=== PATIENT | female | born 1960 | race Native Hawaiian/Other Pacific Islander ===

== ENCOUNTER 2018-05-17 21:59 | Inpatient (IN) | payer SELFPAY ==
[2018-05-17] MEDS ORDERED: NACL 0.9% 500 ML 500 ML IV ONE (23:03)
[2018-05-17] MEDS ORDERED: TYLENOL PO STA (23:03)
[2018-05-17 23:38] LABS: Basophils % (Auto) 0.2 % (0.0-1.8); Eosinophils % (Auto) 0.3 % (0.0-4.3); Hematocrit 36.6 % (30.3-42.9); Hemoglobin 12.2 gm/dl (10.1-14.3); Lymphocytes # (Auto) 0.5 K/mm3 (1.2-5.4); Lymphocytes % (Auto) 4.9 % (13.4-35.0); Mean Corpuscular HGB Conc 33 % (30-34); Mean Corpuscular Hemoglobin 27 pg (28-32); Mean Corpuscular Volume 81 fl (79-97); Monocytes # (Auto) 0.6 K/mm3 (0.0-0.8); Platelet Count 243 K/mm3 (140-440); Red Blood Count 4.52 M/mm3 (3.65-5.03); Red Cell Distribution Width 15.1 % (13.2-15.2)
--- NOTE | 2018-05-17 23:44 | XRay Report ---
FINAL REPORT EXAM: XR CHEST 1V AP HISTORY: possible Sepsis TECHNIQUE: PA view of the chest Comparison: None FINDINGS: There is no evidence of infiltrate, pneumothorax or pleural fluid collection. The cardiomediastinal silhouette is normal in appearance. The bony structures are unremarkable. Visualization detail of the thoracic spine is limited. IMPRESSION: 1. No evidence of an acute pulmonary process.
[2018-05-17] MEDS ORDERED: NACL 0.9% 1000 ML 1,000 ML IV ONE (23:48)
[2018-05-17 23:51] LABS: INR 1.07 (0.87-1.13)
--- NOTE | 2018-05-17 23:52 | Emergency Department Report ---
ED General Adult HPI - General Chief complaint: Fever Stated complaint: WEAK,VOMITING Time Seen by Provider: 05/17/18 23:28 Source: patient Mode of arrival: Ambulatory Limitations: No Limitations - History of Present Illness Initial comments: Patient is 57 years old female with no significant past medical history. Patient presented to the ER complaining of fever, cough for one week. Patient denied any nausea or vomiting. Patient is also complaining of urinary symptoms with increased frequency and burning sensation. Patient denied any chest pain or shortness of breath. Severity scale (0 -10): 10 - Related Data Previous Rx's Medication Instructions Recorded Last Taken Type HYDROcodone/APAP 7.5-325 [[place] 1 each PO Q6HR PRN #20 tablet 12/03/15 Unknown Rx 7.5/325] Ketorolac [Toradol] 10 mg PO Q6H PRN #20 tablet 12/05/15 Unknown Rx Ondansetron [Zofran Odt] 4 mg PO QID PRN #20 tab.rapdis 12/05/15 Unknown Rx Allergies Allergy/AdvReac Type Severity Reaction Status Date / Time No Known Allergies Allergy Verified 12/03/15 20:43 ED Review of Systems ROS: Stated complaint: WEAK,VOMITING Other details as noted in HPI Comment: All other systems reviewed and negative Constitutional: chills, fever Respiratory: cough, shortness of breath, SOB with exertion. denies: wheezing Cardiovascular: palpitations. denies: chest pain Gastrointestinal: denies: abdominal pain, nausea, vomiting, diarrhea, constipation, hematemesis, melena, hematochezia Neurological: denies: headache, weakness, numbness, paresthesias, confusion, abnormal gait ED Past Medical Hx - Past Medical History Previous Medical History?: No - Surgical History Past Surgical History?: No - Social History Smoking Status: Never Smoker Substance Use Type: None - Medications Home Medications: Home Medications Medication Instructions Recorded Confirmed Last Taken Type HYDROcodone/APAP 7.5-325 [[place] 1 each PO Q6HR PRN #20 tablet 12/03/15 Unknown Rx 7.5/325] Ketorolac [Toradol] 10 mg PO Q6H PRN #20 tablet 12/05/15 Unknown Rx Ondansetron [Zofran Odt] 4 mg PO QID PRN #20 tab.rapdis 12/05/15 Unknown Rx ED Physical Exam - General Limitations: No Limitations General appearance: alert, in no apparent distress - Head Head exam: Present: atraumatic, normocephalic, normal inspection - Eye Eye exam: Present: normal appearance, PERRL - ENT ENT exam: Present: normal exam, normal orophraynx - Neck Neck exam: Present: normal inspection, full ROM. Absent: tenderness, meningismus, lymphadenopathy, thyromegaly - Respiratory Respiratory exam: Present: normal lung sounds bilaterally. Absent: respiratory distress, wheezes, rales, rhonchi, chest wall tenderness, accessory muscle use, decreased breath sounds, prolonged expiratory - Cardiovascular Cardiovascular Exam: Present: tachycardia - GI/Abdominal GI/Abdominal exam: Present: soft, normal bowel sounds. Absent: distended, tenderness, guarding, rebound, rigid, organomegaly, mass, bruit, pulsatile mass - Extremities Exam Extremities exam: Present: normal inspection, full ROM, normal capillary refill. Absent: tenderness, pedal edema, joint swelling, calf tenderness - Back Exam Back exam: Present: normal inspection, full ROM. Absent: tenderness, CVA tenderness (R), CVA tenderness (L), muscle spasm, paraspinal tenderness, vertebral tenderness, rash noted - Neurological Exam Neurological exam: Present: alert, oriented X3, CN II-XII intact, normal gait, reflexes normal - Skin Skin exam: Present: warm, intact, normal color ED Course Vital Signs 05/17/18 05/18/18 05/18/18 23:04 00:14 00:15 Temperature 101.9 F H Pulse Rate 113 H 94 H 95 H Respiratory 18 7 L 26 H Rate Blood Pressure 96/58 75/42 O2 Sat by Pulse 98 95 Oximetry 05/18/18 05/18/18 05/18/18 00:45 01:00 01:15 Temperature 98.5 F Pulse Rate 87 87 Respiratory 22 21 Rate Blood Pressure 82/42 85/46 O2 Sat by Pulse 95 93 Oximetry 05/18/18 05/18/18 01:28 01:31 Temperature Pulse Rate 84 Respiratory 18 Rate Blood Pressure O2 Sat by Pulse 98 Oximetry - Central Line Placement Right Femoral Consent Obtained: written consent Time Out Performed: Yes Patient Placed on Monitor/Pulse Ox: Yes Prep: mask, gown, gloves Central Line Prep: Povidone-Iodine 1% Local Anesthesia Used: Lidocaine 2% Central Line Lumen Inserted: triple Bloods Obtained for Lab: Yes Central Line Position: good blood return, all ports aspirated, flus, sutured in place with 3-0 Dressing Applied: Tegaderm, sterile gauze/tape Patient Tolerated Procedure: well, no complications Complications: none ED Medical Decision Making - Lab Data Result diagrams: 05/17/18 23:16 05/17/18 23:16 - EKG Data -: EKG Interpreted by Me EKG shows normal: sinus rhythm - EKG Data Interpretation: no acute changes - Radiology Data Radiology results: report reviewed - Medical Decision Making Patient is 57 years old female with no significant past medical history. Patient presented to the ER complaining of fever, cough for one week. Patient denied any nausea or vomiting. Patient is also complaining of urinary symptoms with increased frequency and burning sensation. Patient denied any chest pain or shortness of breath. Patient found to have a septic shock with a UTI. Patient did not respond to fluid resuscitation. I placed a right femoral central line for vasopressor. I discussed the patient is Dr. Sullivan he had return admitted the patient to medical service. Critical Care Time: Yes Critical care time in (mins) excluding proc time.: 30 Critical care attestation.: If time is entered above; I have spent that time in minutes in the direct care of this critically ill patient, excluding procedure time. ED Disposition Clinical Impression: Septic shock, UTI (urinary tract infection) Disposition: OP ADMIT IP TO THIS HOSP Is pt being admited?: Yes Condition: Stable Referrals: PRIMARY CARE, [Primary Care Provider] - 3-5 Days
[2018-05-17 23:55] LABS: Alanine Aminotransferase 22 units/L (7-56); BUN/Creatinine Ratio 22; Blood Urea Nitrogen 20 mg/dL (7-17); Hemolysis Index 1
[2018-05-18] MEDS: ZOSYN/NS 3.375GM/50ML 3.375 GM/50 ML BAG IV SCH ×4 (00:35→19:00)
[2018-05-18 00:51] LABS: Bacteria,Urine 4+ /HPF (Negative); Bilirubin,Urine NEG (Negative); Blood,Urine MOD (Negative); Color,Urine Amber (Yellow); Mucus,Urine 1+ /HPF
[2018-05-18 00:52] LABS: WBC,Urine > 182.0 /HPF (0.0-6.0)
[2018-05-18] MEDS ORDERED: NACL 0.9% 1000 ML 1,000 ML IV ONE ×2 (01:10→01:55)
[2018-05-18] MEDS ORDERED: SODIUM CHLORIDE FLUSH SYRINGE 10 ML IV PRN (03:16)
[2018-05-18] MEDS ORDERED: TYLENOL PR PRN (03:16)
[2018-05-18] MEDS ORDERED: REGLAN IV PRN (03:16)
[2018-05-18] MEDS: KCL 10MEQ/100ML 10 MEQ/100 ML BAG IV SCH ×2 (04:00→05:44)
[2018-05-18] MEDS ORDERED: LEVOPHED DRIP 4 MG/NS 250 ML 4 MG/250 ML BAG IV SCH (04:00)
[2018-05-18] MEDS ORDERED: ZOFRAN IV PRN (04:04)
--- NOTE | 2018-05-18 04:31 | History and Physical Report ---
History of Present Illness Date of examination: 05/18/18 Date of admission: 05/17/2018 Chief complaint: productive cough, fever, n/v x 3 weeks History of present illness: Patient is a 57 y.o. female who presents to the ER for c/o fever, anorexia, night sweats, cough for 3 weeks. Patient also reports inability to keep any food or fluid down due to nausea or vomiting. Pt states that the symptoms have been going on for 3 weeks, the cough is productive of phlegm, she reports scan amount of blood in the sputum in multiple occasions, she c/o weakness, body ache , chills and night sweats. Patient also complain of dysuria, urinary frequency , pain and and burning in micturation. Patient reports some pleuritic chest pain with cough, denies chest pain, denies SOB, denies abdominal pain, denies diarrhea or constipation. On arrival to the ER, pt's temp was 101.9F, urine analysis shows nitrite positive UTI, chest xray is negative for pulmonary findings, her blood pressure was 82/42, her potassium was 3.2, Blood culture and urine culture was sent to lab, pt was started on Zosyn and Levophed and admitted to ICU for hemodynamic instability due to septic shock. Medications and Allergies Allergies Allergy/AdvReac Type Severity Reaction Status Date / Time No Known Allergies Allergy Verified 12/03/15 20:43 Home Medications Medication Instructions Recorded Confirmed Last Taken Type No Known Home Medications [No 05/18/18 05/18/18 Unknown History Reported Home Medications] Active Meds: Active Medications Acetaminophen (Tylenol) 650 mg OR Q6H PRN PRN Reason: Pain Piperacillin Sod/Tazobactam Sod (Zosyn/Ns 3.375gm/50ml) 3.375 gm in 50 mls @ 100 mls/hr IV Q6HR ENOCH Last Admin: 05/18/18 00:35 Dose: 100 mls/hr Norepinephrine (Levophed Drip 4 Mg/Ns 250 Ml) 4 mg in 250 mls @ 7.5 mls/hr IV TITR ENOCH; Protocol Last Admin: 05/18/18 04:00 Dose: 2 mcg/min, 7.5 mls/hr Sodium Chloride (Nacl 0.9% 1000 Ml) 1,000 mls @ 150 mls/hr IV DIRECT ENOCH Ondansetron HCl (Zofran) 4 mg IV Q6HR PRN PRN Reason: Nausea And Vomiting Sodium Chloride (Sodium Chloride Flush Syringe 10 Ml) 10 ml IV PRN PRN PRN Reason: LINE FLUSH Review of Systems Constitutional: fever, chills, night sweats, anorexia, fatigue, weakness, poor appetite Respiratory: cough, cough with sputum Gastrointestinal: nausea, vomiting Genitourinary Female: difficulty voiding Exam - Constitutional Vitals: Temp Pulse Resp BP Pulse Ox 98.5 F 77 23 90/58 97 05/18/18 01:00 05/18/18 03:15 05/18/18 03:15 05/18/18 03:15 05/18/18 03:15 General appearance: Present: mild distress - EENT Eyes: Present: EOM intact - Neck Neck: Present: normal ROM - Respiratory Respiratory effort: normal - Cardiovascular Rhythm: other (tachy) - Extremities Extremities: pulses symmetrical, No edema, normal color Peripheral Pulses: within normal limits - Abdominal General gastrointestinal: Present: non-tender, non-distended Localized gastrointestinal: tender: LLQ - Rectal Rectal Exam: deferred - Integumentary Integumentary: Present: warm, dry - Musculoskeletal Musculoskeletal: strength equal bilaterally - Psychiatric Psychiatric: appropriate mood/affect, cooperative - Neurologic Neurologic: no moves all extremities Results - Labs CBC & Chem 7: 05/17/18 23:16 05/17/18 23:16 Labs: Laboratory Last Values WBC 10.2 K/mm3 (4.5-11.0) 05/17/18 23:16 RBC 4.52 M/mm3 (3.65-5.03) 05/17/18 23:16 Hgb 12.2 gm/dl (10.1-14.3) 05/17/18 23:16 Hct 36.6 % (30.3-42.9) 05/17/18 23:16 MCV 81 fl (79-97) 05/17/18 23:16 MCH 27 pg (28-32) L 05/17/18 23:16 MCHC 33 % (30-34) 05/17/18 23:16 RDW 15.1 % (13.2-15.2) 05/17/18 23:16 Plt Count 243 K/mm3 (140-440) 05/17/18 23:16 Lymph % (Auto) 4.9 % (13.4-35.0) L 05/17/18 23:16 [place] % (Auto) 6.0 % (0.0-7.3) 05/17/18 23:16 Eos % (Auto) 0.3 % (0.0-4.3) 05/17/18 23:16 Baso % (Auto) 0.2 % (0.0-1.8) 05/17/18 23:16 Lymph # 0.5 K/mm3 (1.2-5.4) L 05/17/18 23:16 [place] # 0.6 K/mm3 (0.0-0.8) 05/17/18 23:16 Eos # 0.0 K/mm3 (0.0-0.4) 05/17/18 23:16 Baso # 0.0 K/mm3 (0.0-0.1) 05/17/18 23:16 Seg Neutrophils % 88.6 % (40.0-70.0) H 05/17/18 23:16 Seg Neutrophils # 9.0 K/mm3 (1.8-7.7) H 05/17/18 23:16 PT 14.5 Sec. (12.2-14.9) 05/17/18 23:16 INR 1.07 (0.87-1.13) 05/17/18 23:16 VBG pH 7.403 (7.320-7.420) 05/17/18 23:16 Sodium 139 mmol/L (137-145) 05/17/18 23:16 Potassium 3.2 mmol/L (3.6-5.0) L 05/17/18 23:16 Chloride 106.1 mmol/L (98-107) 05/17/18 23:16 Carbon Dioxide 20 mmol/L (22-30) L 05/17/18 23:16 Anion Gap 16 mmol/L 05/17/18 23:16 BUN 20 mg/dL (7-17) H 05/17/18 23:16 Creatinine 0.9 mg/dL (0.7-1.2) 05/17/18 23:16 Estimated GFR > 60 ml/min 05/17/18 23:16 BUN/Creatinine Ratio 22 % 05/17/18 23:16 Glucose 115 mg/dL (65-100) H 05/17/18 23:16 Lactic Acid 0.70 mmol/L (0.7-2.0) 05/18/18 01:51 Calcium 9.0 mg/dL (8.4-10.2) 05/17/18 23:16 Total Bilirubin 1.10 mg/dL (0.1-1.2) 05/17/18 23:16 AST 20 units/L (5-40) 05/17/18 23:16 ALT 22 units/L (7-56) 05/17/18 23:16 Alkaline Phosphatase 113 units/L (35-129) 05/17/18 23:16 Total Protein 7.6 g/dL (6.3-8.2) 05/17/18 23:16 Albumin 4.0 g/dL (3.9-5) 05/17/18 23:16 Albumin/Globulin Ratio 1.1 % 05/17/18 23:16 HCG, Qual Negative (Negative) 05/17/18 23:16 Urine Color Carlie (Yellow) 05/17/18 00:00 Urine Turbidity Cloudy (Clear) 05/17/18 00:00 Urine pH 5.0 (5.0-7.0) 05/17/18 00:00 Ur Specific [place] 1.015 (1.003-1.030) 05/17/18 00:00 Urine Protein 30 mg/dl mg/dL (Negative) 05/17/18 00:00 Urine Glucose (UA) Neg mg/dL (Negative) 05/17/18 00:00 Urine Ketones Neg mg/dL (Negative) 05/17/18 00:00 Urine Blood Mod (Negative) 05/17/18 00:00 Urine Nitrite Pos (Negative) 05/17/18 00:00 Urine Bilirubin Neg (Negative) 05/17/18 00:00 Urine Urobilinogen 2.0 mg/dL (<2.0) 05/17/18 00:00 Ur Leukocyte Esterase Lg (Negative) 05/17/18 00:00 Urine WBC (Auto) > 182.0 /HPF (0.0-6.0) H 05/17/18 00:00 Urine RBC (Auto) 17.0 /HPF (0.0-6.0) 05/17/18 00:00 U Epithel Cells (Auto) 6.0 /HPF (0-13.0) 05/17/18 00:00 Urine Bacteria (Auto) 4+ /HPF (Negative) 05/17/18 00:00 Urine WBC Clumps 2+ /HPF 05/17/18 00:00 Urine Mucus 1+ /HPF 05/17/18 00:00 Assessment and Plan Assessment and plan: 1. Acute Sepsis (likely due to UTI) 2. Nitrite positive UTI 3. Hypotension (due to septic shock) 4. Hypokalemia (due to vomiting) 5. hemodynamic instability Plan Admit to ICU for sepsis Start levofed to keep MAP > 65 Zosyn q6hr IVF with NS 150hr Replace potassium PRN Consult pulm for critical care management recheck labs in 24 hrs Supportive care Pt's condition and plan of care was discussed with attending. Advance Directives: Yes Reason for no VTE Prophylaxis: Medical contraindication (coughing blood) Plan of care discussed with patient/family: Yes
[2018-05-18] MEDS: NACL 0.9% 1000 ML 1,000 ML IV SCH ×2 (07:54→18:35)
--- NOTE | 2018-05-18 11:15 | Consultation ---
History of Present Illness Consult date: 05/18/18 Requesting physician: NINO PENNINGTON Reason for consult: other (sepsis secondary to UTI) Medications and Allergies Allergies Allergy/AdvReac Type Severity Reaction Status Date / Time No Known Allergies Allergy Verified 12/03/15 20:43 Home Medications Medication Instructions Recorded Confirmed Last Taken Type No Known Home Medications [No 05/18/18 05/18/18 Unknown History Reported Home Medications] Active Meds: Active Medications Acetaminophen (Tylenol) 650 mg ID Q6H PRN PRN Reason: Pain Enoxaparin Sodium (Lovenox) 40 mg SUB-Q QDAY@1000 ENOCH Piperacillin Sod/Tazobactam Sod (Zosyn/Ns 3.375gm/50ml) 3.375 gm in 50 mls @ 100 mls/hr IV Q6HR ENOCH Last Admin: 05/18/18 06:44 Dose: 100 mls/hr Norepinephrine (Levophed Drip 4 Mg/Ns 250 Ml) 4 mg in 250 mls @ 7.5 mls/hr IV TITR ENOCH; Protocol Last Titration: 05/18/18 07:06 Dose: 0 mcg/min, 0 mls/hr Sodium Chloride (Nacl 0.9% 1000 Ml) 1,000 mls @ 75 mls/hr IV DIRECT ENOCH Last Admin: 05/18/18 07:54 Dose: 150 mls/hr Ondansetron HCl (Zofran) 4 mg IV Q6HR PRN PRN Reason: Nausea And Vomiting Sodium Chloride (Sodium Chloride Flush Syringe 10 Ml) 10 ml IV PRN PRN PRN Reason: LINE FLUSH Physical Examination Vital signs: Vital Signs Temp Pulse Resp BP Pulse Ox 101.9 F H 113 H 18 96/58 98 05/17/18 23:04 05/17/18 23:04 05/17/18 23:04 05/17/18 23:04 05/17/18 23:04 Results - Laboratory Findings CBC and BMP: 05/17/18 23:16 05/17/18 23:16 PT/INR, D-dimer PT 14.5 Sec. (12.2-14.9) 05/17/18 23:16 INR 1.07 (0.87-1.13) 05/17/18 23:16 Abnormal lab findings: Abnormal Labs 05/17/18 05/17/18 05/17/18 00:00 23:16 23:16 MCH 27 L Lymph % (Auto) 4.9 L Lymph # 0.5 L Seg Neutrophils % 88.6 H Seg Neutrophils # 9.0 H Potassium 3.2 L Carbon Dioxide 20 L BUN 20 H Glucose 115 H Urine WBC (Auto) > 182.0 H
[2018-05-18 11:37] LABS: BUN/Creatinine Ratio 19; Blood Urea Nitrogen 13 mg/dL (7-17); Calcium 7.7 mg/dL (8.4-10.2); Hemolysis Index 2
[2018-05-18] MEDS: TYLENOL PO PRN (13:30)
[2018-05-18] MEDS: LOVENOX SUB-Q SCH (13:39)
[2018-05-18] MEDS ORDERED: ZOSYN/NS 3.375GM/50ML 3.375 GM/50 ML BAG IV SCH (23:48)
[2018-05-19] MEDS: ZOSYN/NS 3.375GM/50ML 3.375 GM/50 ML BAG IV SCH ×5 (02:34→23:46)
[2018-05-19 06:02] LABS: Basophils % (Auto) 0.4 % (0.0-1.8); Eosinophils # (Auto) 0.2 K/mm3 (0.0-0.4); Eosinophils % (Auto) 2.3 % (0.0-4.3); Hematocrit 31.3 % (30.3-42.9); Hemoglobin 10.2 gm/dl (10.1-14.3); Lymphocytes # (Auto) 1.5 K/mm3 (1.2-5.4); Lymphocytes % (Auto) 18.2 % (13.4-35.0); Mean Corpuscular HGB Conc 33 % (30-34); Mean Corpuscular Hemoglobin 27 pg (28-32); Mean Corpuscular Volume 83 fl (79-97); Monocytes # (Auto) 0.8 K/mm3 (0.0-0.8); Monocytes % (Auto) 9.6 % (0.0-7.3); Platelet Count 173 K/mm3 (140-440); Red Blood Count 3.79 M/mm3 (3.65-5.03); Red Cell Distribution Width 15.4 % (13.2-15.2)
[2018-05-19 06:22] LABS: Alanine Aminotransferase 17 units/L (7-56); Albumin 3.1 g/dL (3.9-5); BUN/Creatinine Ratio 11; Blood Urea Nitrogen 8 mg/dL (7-17); Calcium 8.3 mg/dL (8.4-10.2); Hemolysis Index 2
--- NOTE | 2018-05-19 09:13 | Progress Note ---
Assessment and Plan Severe Sepsis with Shock UTI Metabolic Acidosis Hypokalemia (due to vomiting) Obesity - complete empiric AB's course [Zosyn] (De-escalate based on clinical and microbiologic data) - urine cultures growing gm -ve rods - continue VTE prophylaxis - PT/OT and increase ambulation - add GI prophylaxis .... re-evaluate prn Subjective Date of service: 05/19/18 Principal diagnosis: Severe Sepsis with Shock; UTI; Metabolic Acidosis; Hypokalemia; Obesity Interval history: Patient is seen today for: Severe Sepsis with Shock; UTI; Metabolic Acidosis; Hypokalemia; Obesity Seen and examined at bedside; 24hour events reviewed; nursing and respiratory care staff consulted; no adverse overnight events reported to me; abdominal pain better; no N/V/F/C; no hematuria or dysuria Objective Vital Signs - 12hr 05/18/18 05/18/18 05/19/18 22:00 22:45 00:00 Temperature 98.2 F 98.9 F Pulse Rate 80 Pulse Rate [ 80 From Monitor] Respiratory 20 20 Rate Blood Pressure 109/59 [Right] O2 Sat by Pulse 96 96 Oximetry 05/19/18 09:00 Temperature Pulse Rate Pulse Rate [ From Monitor] Respiratory 20 Rate Blood Pressure [Right] O2 Sat by Pulse 96 Oximetry Constitutional: no acute distress, alert Eyes: non-icteric ENT: oropharynx moist Neck: supple, no lymphadenopathy, no JVD Effort: normal Ascultation: Bilateral: clear Percussion: Bilateral: not dull Cardiovascular: regular rate and rhythm Gastrointestinal: normoactive bowel sounds, soft, non-tender, non-distended Integumentary: normal Extremities: no cyanosis, no edema, pink and warm, pulses normal Neurologic: normal mental status, non-focal exam, pupils equal and round, CN II- XII normal, motor strength normal and Psychiatric: mood appropriate, affect normal CBC and BMP: 05/19/18 05:20 05/19/18 05:20 ABG, PT/INR, D-dimer: PT/INR, D-dimer PT 14.5 Sec. (12.2-14.9) 05/17/18 23:16 INR 1.07 (0.87-1.13) 05/17/18 23:16 Abnormal lab findings: Abnormal Labs 05/17/18 05/17/18 05/17/18 00:00 23:16 23:16 MCH 27 L RDW Lymph % (Auto) 4.9 L [place] % (Auto) Lymph # 0.5 L Seg Neutrophils % 88.6 H Seg Neutrophils # 9.0 H Potassium 3.2 L Chloride Carbon Dioxide 20 L BUN 20 H Glucose 115 H Calcium Total Protein Albumin Urine WBC (Auto) > 182.0 H 05/18/18 05/19/18 05/19/18 10:45 05:20 05:20 MCH 27 L RDW 15.4 H Lymph % (Auto) [place] % (Auto) 9.6 H Lymph # Seg Neutrophils % Seg Neutrophils # Potassium 3.3 L Chloride 114.0 H 112.7 H Carbon Dioxide 20 L 19 L BUN Glucose Calcium 7.7 L 8.3 L Total Protein 6.2 L Albumin 3.1 L Urine WBC (Auto)
[2018-05-19] MEDS: NACL 0.9% 1000 ML 1,000 ML IV SCH (11:15)
[2018-05-19] MEDS: TYLENOL PO PRN (11:15)
[2018-05-19] MEDS: LOVENOX SUB-Q SCH (11:16)
--- NOTE | 2018-05-19 16:16 | Progress Note ---
Assessment and Plan Assessment and plan: productive cough, fever, n/v x 3 weeks History of present illness: Patient is a 57 y.o. female who presents to the ER for c/o fever, anorexia, night sweats, cough for 3 weeks. Patient also reports inability to keep any food or fluid down due to nausea or vomiting. Pt states that the symptoms have been going on for 3 weeks, the cough is productive of phlegm, she reports scan amount of blood in the sputum in multiple occasions, she c/o weakness, body ache , chills and night sweats. Patient also complain of dysuria, urinary frequency , pain and and burning in micturation. Patient reports some pleuritic chest pain with cough, denies chest pain, denies SOB, denies abdominal pain, denies diarrhea or constipation. On arrival to the ER, pt's temp was 101.9F, urine analysis shows nitrite positive UTI, chest xray is negative for pulmonary findings, her blood pressure was 82/42, her potassium was 3.2, Blood culture and urine culture was sent to lab, pt was started on Zosyn and Levophed and admitted to ICU for hemodynamic instability due to septic shock. 1. Acute Sepsis (likely due to UTI) 2. Nitrite positive UTI 3. Hypotension (due to septic shock) 4. Hypokalemia (due to vomiting) 5. hemodynamic instability Plan Admit to ICU for sepsis Start levofed to keep MAP > 65 Zosyn q6hr IVF with NS 150hr Replace potassium PRN Consult pulm for critical care management recheck labs in 24 hrs Supportive care Pt's condition and plan of care was discussed with attending. History Interval history: Review of systems Constitutional: No fevers, no malaise, no joint pains CVS: No chest pain, no orthopnea, no dyspnea on exertion, no pedal edema GI: No abdominal pain, no diarrhea, no vomiting, no constipation Respiratory: No shortness of breath, no wheezing, no coughing Hospitalist Physical - Physical exam Narrative exam: General.: Appears well, no distress, nontoxic HEENT: Moist mucous membranes, extraocular muscles intact, no lymphadenopathy Neck: supple Cardiac: S1-S2 heard Lungs: clear to auscultation bilaterally Abdomen: soft , nontender, nondistended, bowel sounds positive Extremities: no edema clubbing or cyanosis Skin: no rash or lesions Neurologic: no gross focal deficits Psych: appropriate behavior, appropriate mood, corporative, judgment intact - Constitutional Vitals: Temp Pulse Resp BP Pulse Ox 98.0 F 72 20 121/58 94 05/19/18 11:53 05/19/18 11:53 05/19/18 11:53 05/19/18 11:53 05/19/18 11:53 General appearance: Present: mild distress Results - Labs CBC & Chem 7: 05/19/18 05:20 05/19/18 05:20 Labs: Laboratory Last Values WBC 8.2 K/mm3 (4.5-11.0) 05/19/18 05:20 RBC 3.79 M/mm3 (3.65-5.03) 05/19/18 05:20 Hgb 10.2 gm/dl (10.1-14.3) 05/19/18 05:20 Hct 31.3 % (30.3-42.9) 05/19/18 05:20 MCV 83 fl (79-97) 05/19/18 05:20 MCH 27 pg (28-32) L 05/19/18 05:20 MCHC 33 % (30-34) 05/19/18 05:20 RDW 15.4 % (13.2-15.2) H 05/19/18 05:20 Plt Count 173 K/mm3 (140-440) 05/19/18 05:20 Lymph % (Auto) 18.2 % (13.4-35.0) 05/19/18 05:20 [place] % (Auto) 9.6 % (0.0-7.3) H 05/19/18 05:20 Eos % (Auto) 2.3 % (0.0-4.3) 05/19/18 05:20 Baso % (Auto) 0.4 % (0.0-1.8) 05/19/18 05:20 Lymph # 1.5 K/mm3 (1.2-5.4) 05/19/18 05:20 [place] # 0.8 K/mm3 (0.0-0.8) 05/19/18 05:20 Eos # 0.2 K/mm3 (0.0-0.4) 05/19/18 05:20 Baso # 0.0 K/mm3 (0.0-0.1) 05/19/18 05:20 Seg Neutrophils % 69.5 % (40.0-70.0) 05/19/18 05:20 Seg Neutrophils # 5.7 K/mm3 (1.8-7.7) 05/19/18 05:20 PT 14.5 Sec. (12.2-14.9) 05/17/18 23:16 INR 1.07 (0.87-1.13) 05/17/18 23:16 VBG pH 7.403 (7.320-7.420) 05/17/18 23:16 Sodium 144 mmol/L (137-145) 05/19/18 05:20 Potassium 3.3 mmol/L (3.6-5.0) L 05/19/18 05:20 Chloride 112.7 mmol/L (98-107) H 05/19/18 05:20 Carbon Dioxide 19 mmol/L (22-30) L 05/19/18 05:20 Anion Gap 16 mmol/L 05/19/18 05:20 BUN 8 mg/dL (7-17) 05/19/18 05:20 Creatinine 0.7 mg/dL (0.7-1.2) 05/19/18 05:20 Estimated GFR > 60 ml/min 05/19/18 05:20 BUN/Creatinine Ratio 11 % 05/19/18 05:20 Glucose 98 mg/dL (65-100) 05/19/18 05:20 Lactic Acid 0.70 mmol/L (0.7-2.0) 05/18/18 01:51 Calcium 8.3 mg/dL (8.4-10.2) L 05/19/18 05:20 Total Bilirubin 0.60 mg/dL (0.1-1.2) 05/19/18 05:20 AST 14 units/L (5-40) 05/19/18 05:20 ALT 17 units/L (7-56) 05/19/18 05:20 Alkaline Phosphatase 91 units/L (35-129) 05/19/18 05:20 Total Protein 6.2 g/dL (6.3-8.2) L 05/19/18 05:20 Albumin 3.1 g/dL (3.9-5) L 05/19/18 05:20 Albumin/Globulin Ratio 1.0 % 05/19/18 05:20 HCG, Qual Negative (Negative) 05/17/18 23:16 Urine Color [place] (Yellow) 05/17/18 00:00 Urine Turbidity Cloudy (Clear) 05/17/18 00:00 Urine pH 5.0 (5.0-7.0) 05/17/18 00:00 Ur Specific [place] 1.015 (1.003-1.030) 05/17/18 00:00 Urine Protein 30 mg/dl mg/dL (Negative) 05/17/18 00:00 Urine Glucose (UA) Neg mg/dL (Negative) 05/17/18 00:00 Urine Ketones Neg mg/dL (Negative) 05/17/18 00:00 Urine Blood Mod (Negative) 05/17/18 00:00 Urine Nitrite Pos (Negative) 05/17/18 00:00 Urine Bilirubin Neg (Negative) 05/17/18 00:00 Urine Urobilinogen 2.0 mg/dL (<2.0) 05/17/18 00:00 Ur Leukocyte Esterase Lg (Negative) 05/17/18 00:00 Urine WBC (Auto) > 182.0 /HPF (0.0-6.0) H 05/17/18 00:00 Urine RBC (Auto) 17.0 /HPF (0.0-6.0) 05/17/18 00:00 U Epithel Cells (Auto) 6.0 /HPF (0-13.0) 05/17/18 00:00 Urine Bacteria (Auto) 4+ /HPF (Negative) 05/17/18 00:00 Urine WBC Clumps 2+ /HPF 05/17/18 00:00 Urine Mucus 1+ /HPF 05/17/18 00:00
[2018-05-20] MEDS: NACL 0.9% 1000 ML 1,000 ML IV SCH ×2 (03:32→16:28)
[2018-05-20] MEDS: ZOSYN/NS 3.375GM/50ML 3.375 GM/50 ML BAG IV SCH ×3 (06:13→18:26)
--- NOTE | 2018-05-20 08:37 | Progress Note ---
Assessment and Plan Patient sleeping at this time. On room air. No acute respiratory distress.O2 saturation 94%. Patient afebrile. - Patient Problems (1) Septic shock Current Visit: Yes Status: Acute Plan to address problem: Improved. Patient is on Zosyn. (2) UTI (urinary tract infection) Current Visit: Yes Status: Acute Plan to address problem: Patient is on Zosyn. Subjective Date of service: 05/20/18 Principal diagnosis: Severe Sepsis with Shock; UTI; Metabolic Acidosis; Hypokalemia; Obesity Interval history: Patient sleeping at this time. On room air. No acute respiratory distress.O2 saturation 94%. Patient afebrile. Objective Vital Signs - 12hr 05/19/18 05/20/18 22:00 06:17 Temperature 98.5 F Pulse Rate 58 L Respiratory 20 18 Rate Blood Pressure 128/66 O2 Sat by Pulse 92 Oximetry Constitutional: no acute distress, asleep Eyes: non-icteric ENT: oropharynx moist Neck: supple, no lymphadenopathy, no JVD Effort: normal Ascultation: Bilateral: clear Percussion: Bilateral: not dull Cardiovascular: regular rate and rhythm Gastrointestinal: normoactive bowel sounds, soft, non-tender, non-distended Integumentary: normal Extremities: no cyanosis, no edema, pink and warm, pulses normal Neurologic: normal mental status, non-focal exam, pupils equal and round, CN II- XII normal, motor strength normal and Psychiatric: mood appropriate, affect normal CBC and BMP: 05/19/18 05:20 05/19/18 05:20 ABG, PT/INR, D-dimer: PT/INR, D-dimer PT 14.5 Sec. (12.2-14.9) 05/17/18 23:16 INR 1.07 (0.87-1.13) 05/17/18 23:16 Abnormal lab findings: Abnormal Labs 05/17/18 05/17/18 05/17/18 00:00 23:16 23:16 MCH 27 L RDW Lymph % (Auto) 4.9 L [place] % (Auto) Lymph # 0.5 L Seg Neutrophils % 88.6 H Seg Neutrophils # 9.0 H Potassium 3.2 L Chloride Carbon Dioxide 20 L BUN 20 H Glucose 115 H Calcium Total Protein Albumin Urine WBC (Auto) > 182.0 H 05/18/18 05/19/18 05/19/18 10:45 05:20 05:20 MCH 27 L RDW 15.4 H Lymph % (Auto) Swift % (Auto) 9.6 H Lymph # Seg Neutrophils % Seg Neutrophils # Potassium 3.3 L Chloride 114.0 H 112.7 H Carbon Dioxide 20 L 19 L BUN Glucose Calcium 7.7 L 8.3 L Total Protein 6.2 L Albumin 3.1 L Urine WBC (Auto) Chest x-ray: report reviewed (No acute pulmonary process.), image reviewed (No evidence of acute pulmonary process.)
[2018-05-20] MEDS: LOVENOX SUB-Q SCH (12:18)
--- NOTE | 2018-05-20 12:18 | Discharge Summary ---
Providers - Providers Date of Admission: 05/18/18 03:17 Attending physician: HUSAM HANKINS MD 05/18/18 03:17 Consult to Dietitian/Nutrition [CONS] Routine Physician Instructions: Reason For Exam: anorexia Reason for Consult: Poor oral intake 05/18/18 03:21 Consult to Physician [CONS] Routine Comment: Consulting Provider: DK MOSLEY Physician Instructions: Reason For Exam: critical care management Primary care physician: JUNCTION MAKER Hospitalization Condition: Stable Exam - Constitutional Vitals: Temp Pulse Resp BP Pulse Ox 98.8 F 57 L 16 147/74 94 05/20/18 09:13 05/20/18 09:13 05/20/18 09:13 05/20/18 09:13 05/20/18 09:13 Plan Follow up with: PRIMARY MD JAYDA [Primary Care Provider] - 3-5 Days Prescriptions: Acyclovir [Acyclovir Ointment] 1 applic TP 5XD #1 tube Cephalexin [Keflex] 500 mg PO BID #8 capsule Loperamide [Imodium] 4 mg PO Q6H PRN #20 capsule PRN Reason: Diarrhea
--- NOTE | 2018-05-20 12:20 | Progress Note ---
Assessment and Plan Assessment and plan: productive cough, fever, n/v x 3 weeks History of present illness: Patient is a 57 y.o. female who presents to the ER for c/o fever, anorexia, night sweats, cough for 3 weeks. Patient also reports inability to keep any food or fluid down due to nausea or vomiting. Pt states that the symptoms have been going on for 3 weeks, the cough is productive of phlegm, she reports scan amount of blood in the sputum in multiple occasions, she c/o weakness, body ache , chills and night sweats. Patient also complain of dysuria, urinary frequency , pain and and burning in micturation. Patient reports some pleuritic chest pain with cough, denies chest pain, denies SOB, denies abdominal pain, denies diarrhea or constipation. On arrival to the ER, pt's temp was 101.9F, urine analysis shows nitrite positive UTI, chest xray is negative for pulmonary findings, her blood pressure was 82/42, her potassium was 3.2, Blood culture and urine culture was sent to lab, pt was started on Zosyn and Levophed and admitted to ICU for hemodynamic instability due to septic shock. 1. Acute Sepsis (likely due to UTI) 2. Nitrite positive UTI 3. Hypotension (due to septic shock) 4. Hypokalemia (due to vomiting) 5. hemodynamic instability Plan Admit to ICU for sepsis Start levofed to keep MAP > 65 Zosyn q6hr IVF with NS 150hr Replace potassium PRN Consult pulm for critical care management recheck labs in 24 hrs Supportive care Pt's condition and plan of care was discussed with attending. Hospitalist Physical - Constitutional Vitals: Temp Pulse Resp BP Pulse Ox 98.8 F 57 L 16 147/74 94 05/20/18 09:13 05/20/18 09:13 05/20/18 09:13 05/20/18 09:13 05/20/18 09:13 General appearance: Present: mild distress Results - Labs CBC & Chem 7: 05/19/18 05:20 05/19/18 05:20 Labs: Laboratory Last Values WBC 8.2 K/mm3 (4.5-11.0) 05/19/18 05:20 RBC 3.79 M/mm3 (3.65-5.03) 05/19/18 05:20 Hgb 10.2 gm/dl (10.1-14.3) 05/19/18 05:20 Hct 31.3 % (30.3-42.9) 05/19/18 05:20 MCV 83 fl (79-97) 05/19/18 05:20 MCH 27 pg (28-32) L 05/19/18 05:20 MCHC 33 % (30-34) 05/19/18 05:20 RDW 15.4 % (13.2-15.2) H 05/19/18 05:20 Plt Count 173 K/mm3 (140-440) 05/19/18 05:20 Lymph % (Auto) 18.2 % (13.4-35.0) 05/19/18 05:20 Kings % (Auto) 9.6 % (0.0-7.3) H 05/19/18 05:20 Eos % (Auto) 2.3 % (0.0-4.3) 05/19/18 05:20 Baso % (Auto) 0.4 % (0.0-1.8) 05/19/18 05:20 Lymph # 1.5 K/mm3 (1.2-5.4) 05/19/18 05:20 Kings # 0.8 K/mm3 (0.0-0.8) 05/19/18 05:20 Eos # 0.2 K/mm3 (0.0-0.4) 05/19/18 05:20 Baso # 0.0 K/mm3 (0.0-0.1) 05/19/18 05:20 Seg Neutrophils % 69.5 % (40.0-70.0) 05/19/18 05:20 Seg Neutrophils # 5.7 K/mm3 (1.8-7.7) 05/19/18 05:20 PT 14.5 Sec. (12.2-14.9) 05/17/18 23:16 INR 1.07 (0.87-1.13) 05/17/18 23:16 VBG pH 7.403 (7.320-7.420) 05/17/18 23:16 Sodium 144 mmol/L (137-145) 05/19/18 05:20 Potassium 3.3 mmol/L (3.6-5.0) L 05/19/18 05:20 Chloride 112.7 mmol/L (98-107) H 05/19/18 05:20 Carbon Dioxide 19 mmol/L (22-30) L 05/19/18 05:20 Anion Gap 16 mmol/L 05/19/18 05:20 BUN 8 mg/dL (7-17) 05/19/18 05:20 Creatinine 0.7 mg/dL (0.7-1.2) 05/19/18 05:20 Estimated GFR > 60 ml/min 05/19/18 05:20 BUN/Creatinine Ratio 11 % 05/19/18 05:20 Glucose 98 mg/dL (65-100) 05/19/18 05:20 Lactic Acid 0.70 mmol/L (0.7-2.0) 05/18/18 01:51 Calcium 8.3 mg/dL (8.4-10.2) L 05/19/18 05:20 Total Bilirubin 0.60 mg/dL (0.1-1.2) 05/19/18 05:20 AST 14 units/L (5-40) 05/19/18 05:20 ALT 17 units/L (7-56) 05/19/18 05:20 Alkaline Phosphatase 91 units/L (35-129) 05/19/18 05:20 Total Protein 6.2 g/dL (6.3-8.2) L 05/19/18 05:20 Albumin 3.1 g/dL (3.9-5) L 05/19/18 05:20 Albumin/Globulin Ratio 1.0 % 05/19/18 05:20 HCG, Qual Negative (Negative) 05/17/18 23:16 Urine Color Carlie (Yellow) 05/17/18 00:00 Urine Turbidity Cloudy (Clear) 05/17/18 00:00 Urine pH 5.0 (5.0-7.0) 05/17/18 00:00 Ur Specific [place] 1.015 (1.003-1.030) 05/17/18 00:00 Urine Protein 30 mg/dl mg/dL (Negative) 05/17/18 00:00 Urine Glucose (UA) Neg mg/dL (Negative) 05/17/18 00:00 Urine Ketones Neg mg/dL (Negative) 05/17/18 00:00 Urine Blood Mod (Negative) 05/17/18 00:00 Urine Nitrite Pos (Negative) 05/17/18 00:00 Urine Bilirubin Neg (Negative) 05/17/18 00:00 Urine Urobilinogen 2.0 mg/dL (<2.0) 05/17/18 00:00 Ur Leukocyte Esterase Lg (Negative) 05/17/18 00:00 Urine WBC (Auto) > 182.0 /HPF (0.0-6.0) H 05/17/18 00:00 Urine RBC (Auto) 17.0 /HPF (0.0-6.0) 05/17/18 00:00 U Epithel Cells (Auto) 6.0 /HPF (0-13.0) 05/17/18 00:00 Urine Bacteria (Auto) 4+ /HPF (Negative) 05/17/18 00:00 Urine WBC Clumps 2+ /HPF 05/17/18 00:00 Urine Mucus 1+ /HPF 05/17/18 00:00
[2018-05-20] MEDS: IMODIUM PO PRN (16:28)
[2018-05-20] MEDS: ACYCLOVIR TP SCH ×2 (18:26→21:07)
[2018-05-20] MEDS: TYLENOL PO PRN (21:12)
[2018-05-21] MEDS: ZOSYN/NS 3.375GM/50ML 3.375 GM/50 ML BAG IV SCH ×3 (00:45→14:21)
[2018-05-21] MEDS: TYLENOL PO PRN (01:36)
[2018-05-21] MEDS: ACYCLOVIR TP SCH ×2 (05:09→12:02)
[2018-05-21] MEDS: NACL 0.9% 1000 ML 1,000 ML IV SCH (08:50)
[2018-05-21] MEDS: LOVENOX SUB-Q SCH (10:14)
[2018-05-21] MEDS: IMODIUM PO PRN (10:14)
[2018-05-21 15:41] VITALS: BP 149/79
== END 2018-05-21 14:00 | disposition home or self-care (01) | DRG 871 ==
LOC: ED 21:59 → CC1 05-18 03:17 → 3A 05-18 15:28
PROVIDERS: ADMIT Internal Medicine; ATTEND Internal Medicine
PROC: 06HM33Z Insertion of Infusion Device into Right Femoral Vein, Percutaneous Approach (ICD-10-PCS; principal; 2018-05-18)
DX: A41.9 Sepsis, unspecified organism (principal); R65.21 Severe sepsis with septic shock; N39.0 Urinary tract infection, site not specified; E87.2 Acidosis; E87.6 Hypokalemia; E66.9 Obesity, unspecified; Z68.32 Body mass index [BMI] 32.0-32.9, adult
CPT/HCPCS: 36415; 71045; 80048; 80053; 81001; 82140; 82805; 84703; 85025; 85610; 87040; 87076; 87086; 87186; 87324; 93005; 93010; 96361; 96365; J1650; J2543; J3480; J7030